=== PATIENT | male | born 1985 ===

== ENCOUNTER 2020-01-29 17:20 | Emergency (ER) | payer OTHER ==
[~2020-01-29] VITALS: Ht 167.6 cm; Wt 79.5 kg
[2020-01-29 19:14] VITALS: BP 132/84; PULSE 80; TEMP 98.3
== END 2020-01-29 19:28 | disposition home or self-care (01) ==
LOC: COL.ER 17:20
DX: S93.401A Sprain of unspecified ligament of right ankle, initial encounter (principal); Z88.8 Allergy status to other drugs, medicaments and biological substances; X50.1XXA Overexertion from prolonged static or awkward postures, initial encounter